=== PATIENT | male | born 1955 | race Caucasian/White ===

== ENCOUNTER 2018-05-10 21:57 | Emergency (ER) | payer MEDICAID ==
[~2018-05-10] VITALS: Ht 175.3 cm; Wt 99.8 kg
[~2018-05-10 21:57] MED LIST: AMBIEN PO; PAX20 PO; PRI20 PO; VICODIN ES 3001 TAB PO
[2018-05-10 22:14] VITALS: Ht 175.3 cm; Wt 99.8 kg
[2018-05-10 23:13] LABS: CALCIUM 8.6 mg/dL (8.5-10.1); CARBON DIOXIDE 19.5 mmol/L (21-32); CHLORIDE SERUM 110 mmol/L (98-107); CREATININE SERUM 1.3 mg/dL (0.7-1.3); GFR1 60 mL/min; GLUCOSE SERUM 134 mg/dL (74-106); POTASSIUM SERUM 3.5 mmol/L (3.5-5.1); SODIUM SERUM 144 mmol/L (136-145)
[2018-05-10 23:17] LABS: ALKALINE PHOSPHATASE 94 U/L (46-116); ALT/SGPT 21 U/L (16-63); AST/SGOT 17 U/L (15-37); BILIRUBIN TOTAL 0.2 mg/dL (0.20-1.00); TOTAL PROTEIN, SERUM 7.1 g/dL (6.4-8.2)
[2018-05-10 23:18] LABS: ALBUMIN 3.3 g/dL (3.4-5.0)
[2018-05-10 23:22] LABS: BASOPHIL % 0.5 % (0-2); PLATELET COUNT 268 x10^3mcL (130-400)
[2018-05-10 23:24] LABS: RED CELL DISTRIBUTION WIDTH 14.9 % (11.5-14.5)
[2018-05-11 06:22] VITALS: BP 110/67
== END 2018-05-11 06:22 | disposition home or self-care (01) ==
LOC: ED 21:57
PROVIDERS: Emergency Medicine
DX: F10.129 Alcohol abuse with intoxication, unspecified (principal); G89.29 Other chronic pain; M54.9 Dorsalgia, unspecified; Z86.73 Personal history of transient ischemic attack (TIA), and cerebral infarction without residual deficits
CPT/HCPCS: G0480; J1885; Q0092

== ENCOUNTER 2019-11-03 21:50 | Emergency (ER) | payer OTHER ==
[~2019-11-03] VITALS: Ht 175.3 cm; Wt 89.8 kg
[2019-11-03 21:56] VITALS: Ht 175.3 cm; Wt 89.8 kg
[2019-11-03 22:38] LABS: BASOPHIL % 0.3 % (0-2); PLATELET COUNT 237 x10^3mcL (130-400); RED CELL DISTRIBUTION WIDTH 14.2 % (11.5-14.5)
[2019-11-03 22:53] LABS: CARBON DIOXIDE 27.5 mmol/L (21-32); CHLORIDE SERUM 107 mmol/L (98-107); CREATININE SERUM 1.2 mg/dL (0.7-1.3); GFR1 > 60 mL/min; GLUCOSE SERUM 121 mg/dL (74-106); POTASSIUM SERUM 4.4 mmol/L (3.5-5.1); SODIUM SERUM 145 mmol/L (136-145)
[2019-11-03 22:58] LABS: ALBUMIN 3.9 g/dL (3.4-5.0); ALKALINE PHOSPHATASE 84 U/L (46-116); ALT/SGPT 28 U/L (16-63); AST/SGOT 22 U/L (15-37); BILIRUBIN TOTAL 0.3 mg/dL (0.20-1.00); TOTAL PROTEIN, SERUM 7.6 g/dL (6.4-8.2)
[2019-11-03 23:59] VITALS: BP 110/75
[2019-11-04 00:03] LABS: AMPHETAMINE QUAL UR NONE DETECTED (See below)
== END 2019-11-04 00:03 | disposition home or self-care (01) ==
LOC: ED 21:50
PROVIDERS: Emergency Medicine
DX: F10.129 Alcohol abuse with intoxication, unspecified (principal); G89.29 Other chronic pain; M54.5 Low back pain; Z86.73 Personal history of transient ischemic attack (TIA), and cerebral infarction without residual deficits
CPT/HCPCS: 36415; G0480

== ENCOUNTER 2020-02-25 00:25 | Emergency (ER) | payer OTHER ==
[~2020-02-25] VITALS: Ht 175.3 cm; Wt 102.1 kg
[2020-02-25 00:34] VITALS: Ht 175.3 cm; Wt 102.1 kg
[2020-02-25 02:47] LABS: BASOPHIL % 0.3 % (0-2); PLATELET COUNT 200 x10^3mcL (130-400); RED CELL DISTRIBUTION WIDTH 15.3 % (11.5-14.5)
[2020-02-25 03:00] LABS: CALCIUM 8.1 mg/dL (8.5-10.1); CARBON DIOXIDE 30.1 mmol/L (21-32); CHLORIDE SERUM 112 mmol/L (98-107); CREATININE SERUM 1.1 mg/dL (0.7-1.3); GFR1 > 60 mL/min; GLUCOSE SERUM 104 mg/dL (74-106); POTASSIUM SERUM 3.6 mmol/L (3.5-5.1); SODIUM SERUM 149 mmol/L (136-145)
[2020-02-25 03:04] LABS: ALBUMIN 3.3 g/dL (3.4-5.0); ALKALINE PHOSPHATASE 79 U/L (46-116); ALT/SGPT 26 U/L (16-63); AST/SGOT 21 U/L (15-37); BILIRUBIN TOTAL 0.17 mg/dL (0.20-1.00); TOTAL PROTEIN, SERUM 6.8 g/dL (6.4-8.2)
[2020-02-25 06:29] LABS: microscopic required? NO
[2020-02-25 07:13] LABS: UA SPECIFIC GRAVITY >=1.030 (1.005-1.035); urine erythrocyte NEGATIVE (NEGATIVE)
[2020-02-25 10:50] LABS: AMPHETAMINE QUAL UR NONE DETECTED (See below)
[2020-02-25 15:09] VITALS: BP 128/69
== END 2020-02-25 15:00 ==
LOC: ED 00:25
PROVIDERS: Emergency Medicine; Student in an Organized Health Care Education/Training Program
DX: F32.9 Major depressive disorder, single episode, unspecified (principal); R45.851 Suicidal ideations; F10.129 Alcohol abuse with intoxication, unspecified; E83.51 Hypocalcemia
CPT/HCPCS: G0480; U0003-CS

== ENCOUNTER 2020-02-25 15:52 | Emergency (ER) | payer OTHER ==
[~2020-02-25] VITALS: Ht 175.3 cm; Wt 102.1 kg
[2020-02-25 15:56] VITALS: Ht 175.3 cm; Wt 102.1 kg
[2020-02-25 17:52] VITALS: BP 160/92
== END 2020-02-25 17:52 ==
LOC: ED 15:52
DX: G89.29 Other chronic pain (principal); M54.9 Dorsalgia, unspecified; I10 Essential (primary) hypertension; F31.9 Bipolar disorder, unspecified; Z13.9 Encounter for screening, unspecified

== ENCOUNTER 2020-04-08 22:05 | Emergency (ER) | payer OTHER ==
[~2020-04-08] VITALS: Ht 170.2 cm; Wt 104.3 kg
[2020-04-08 22:12] VITALS: Ht 170.2 cm; Wt 104.3 kg
[2020-04-08 22:53] LABS: BASOPHIL % 1.3 % (0-2); PLATELET COUNT 299 x10^3mcL (130-400)
[2020-04-08 22:56] LABS: CALCIUM 8.8 mg/dL (8.5-10.1); CARBON DIOXIDE 25.1 mmol/L (21-32); CREATININE SERUM 1.6 mg/dL (0.7-1.3); POTASSIUM SERUM 3.6 mmol/L (3.5-5.1)
[2020-04-08 22:58] LABS: RED CELL DISTRIBUTION WIDTH 14.8 % (11.5-14.5)
[2020-04-08 23:00] LABS: ALBUMIN 3.4 g/dL (3.4-5.0); BILIRUBIN TOTAL 0.1 mg/dL (0.20-1.00); MAGNESIUM 2.5 mg/dL (1.8-2.4); TOTAL PROTEIN, SERUM 7.2 g/dL (6.4-8.2)
[2020-04-09 08:30] VITALS: BP 132/102
== END 2020-04-09 05:30 | disposition home or self-care (01) ==
LOC: ED 22:05
PROVIDERS: Emergency Medicine
DX: F10.129 Alcohol abuse with intoxication, unspecified (principal); F11.10 Opioid abuse, uncomplicated; I10 Essential (primary) hypertension; Z86.73 Personal history of transient ischemic attack (TIA), and cerebral infarction without residual deficits
CPT/HCPCS: 82962; G0480; Q0092

== ENCOUNTER 2020-08-07 21:52 | Emergency (ER) | payer OTHER ==
[~2020-08-07] VITALS: Ht 172.7 cm; Wt 92.1 kg
[2020-08-07 22:05] VITALS: Ht 172.7 cm; Wt 92.1 kg
[2020-08-07 23:27] VITALS: BP 144/88
== END 2020-08-07 23:27 | disposition home or self-care (01) ==
LOC: ED 21:52
DX: I10 Essential (primary) hypertension (principal); G89.29 Other chronic pain; M54.9 Dorsalgia, unspecified; F31.9 Bipolar disorder, unspecified; F41.9 Anxiety disorder, unspecified

== ENCOUNTER 2020-08-23 11:00 | Emergency (ER) | payer OTHER ==
[~2020-08-23] VITALS: Ht 175.3 cm; Wt 91.2 kg
[2020-08-23 11:13] VITALS: Ht 175.3 cm; Wt 91.2 kg
[2020-08-23 12:08] VITALS: BP 174/106
== END 2020-08-23 12:08 | disposition home or self-care (01) ==
LOC: ED 11:00
DX: L73.9 Follicular disorder, unspecified (principal); L21.9 Seborrheic dermatitis, unspecified; I10 Essential (primary) hypertension; G89.29 Other chronic pain; Z86.73 Personal history of transient ischemic attack (TIA), and cerebral infarction without residual deficits

== ENCOUNTER 2020-09-17 13:33 | Emergency (ER) | payer OTHER ==
[~2020-09-17] VITALS: Ht 172.7 cm; Wt 77.1 kg
[2020-09-17 13:39] VITALS: Ht 172.7 cm; Wt 77.1 kg
[2020-09-17 14:19] LABS: BASOPHIL % 0.7 % (0.2-1.5); PLATELET COUNT 273 x10^3mcL (152-348)
[2020-09-17 14:26] LABS: RED CELL DISTRIBUTION WIDTH 14.6 % (12.1-16.2)
[2020-09-17 14:30] LABS: CALCIUM 9.5 mg/dL (8.5-10.1); CARBON DIOXIDE 21.7 mmol/L (21-32); CHLORIDE SERUM 104 mmol/L (98-107); CREATININE SERUM 1.2 mg/dL (0.7-1.3); GFR1 > 60 mL/min; GLUCOSE SERUM 110 mg/dL (74-106); POTASSIUM SERUM 3.5 mmol/L (3.5-5.1); SODIUM SERUM 139 mmol/L (136-145)
[2020-09-17 14:43] LABS: ALBUMIN 3.7 g/dL (3.4-5.0); ALKALINE PHOSPHATASE 109 U/L (46-116); ALT/SGPT 33 U/L (16-63); AST/SGOT 27 U/L (15-37); BILIRUBIN TOTAL 0.3 mg/dL (0.20-1.00); T4(THYROXINE) 6.2 ug/dL (4.7-13.3); TOTAL PROTEIN, SERUM 7.6 g/dL (6.4-8.2)
[2020-09-17 16:45] LABS: AMPHETAMINE QUAL UR NONE DETECTED (See below)
[2020-09-18 09:14] VITALS: BP 113/65
== END 2020-09-18 09:15 | disposition home or self-care (01) ==
LOC: ED 13:33
PROVIDERS: Emergency Medicine
DX: F10.129 Alcohol abuse with intoxication, unspecified (principal); R45.851 Suicidal ideations; I10 Essential (primary) hypertension; G89.29 Other chronic pain; M19.90 Unspecified osteoarthritis, unspecified site; S80.12XA Contusion of left lower leg, initial encounter; S80.11XA Contusion of right lower leg, initial encounter; X58.XXXA Exposure to other specified factors, initial encounter; Y93.89 Activity, other specified; Y92.89 Other specified places as the place of occurrence of the external cause; Y99.8 Other external cause status; Z86.73 Personal history of transient ischemic attack (TIA), and cerebral infarction without residual deficits; Z20.822 Contact with and (suspected) exposure to COVID-19; Y90.8 Blood alcohol level of 240 mg/100 ml or more
CPT/HCPCS: G0480; J1200; J1630; J2060; U0003